=== PATIENT | female | born 1950 | race Caucasian/White ===

== ENCOUNTER 2019-04-06 06:40 | Inpatient (IN) | payer MEDICARE, OTHER ==
[2019-03-29 16:05] LABS: BASOPHILS # (AUTO) 0.1 X10'3 (0-0.2); BASOPHILS % (AUTO) 0.9 % (0-1); EOSINOPHILS # (AUTO) 0.2 X10'3 (0-0.9); EOSINOPHILS % (AUTO) 1.9 % (0-6); LYMPHOCYTES # (AUTO) 2.5 X10'3 (1.1-4.8); LYMPHOCYTES % (AUTO) 23.8 % (21-51); MEAN CORPUSCULAR HEMOGLOBIN 29.1 PG (27.0-31.0); MEAN CORPUSCULAR HGB CONC 33.5 g/dL (33.0-36.5); MEAN CORPUSCULAR VOLUME 87.1 FL (78-98); MEAN PLATELET VOLUME 7.9 FL (7.4-10.4); MONOCYTES # (AUTO) 0.6 X10'3 (0-0.9); MONOCYTES % (AUTO) 5.6 % (2-12); NEUTROPHILS # (AUTO) 7.1 X10'3 (1.8-7.7); NEUTROPHILS % (AUTO) 67.8 % (42-75); PRE OP PLATELET COUNT 376 X10'3 (140-440); RED BLOOD COUNT 5.16 X10'6 (4.20-5.60); RED CELL DISTRIBUTION WIDTH 14.4 % (11.5-14.5)
[2019-03-29 16:12] LABS: ALKALINE PHOSPHATASE 172 IU/L (46-116); BLOOD UREA NITROGEN 12 MG/DL (7-18); CALCIUM 9.4 MG/DL (8.5-10.1); CHLORIDE 104 MMOL/L (99-107); CREATININE 0.86 MG/DL (0.40-0.90); PRE OP ALT 48 U/L (30-65); PRE OP ANION GAP 9 (8-16); PRE OP AST 23 U/L (10-37); PRE OP BILIRUB, TOTAL 0.5 MG/DL (0.0-1.0); PRE OP GLUCOSE 97 MG/DL (70-104); PRE OP POTASSIUM 3.7 MMOL/L (3.4-5.1); PRE OP SODIUM 140 MMOL/L (135-145); TOTAL CARBON DIOXIDE 27.1 MMOL/L (24-32); TOTAL PROTEIN 7.9 G/DL (6.4-8.2); eGFR 65 ML/MIN
[~2019-04-06] VITALS: Ht 157.5 cm; Wt 72.6 kg
[2019-04-06] VITALS (16 sets, daily range): BP systolic 104–149; BP diastolic 43–82
[~2019-04-06 06:40] MED LIST: ATOR40TA PO; BUPR150T6 PO; FLUT16SP2 BOTHNARES; GABA600T13 PO; HYDR-3686 PO; famotidine 20mg tablet PO ONE; ringers solution, lacted 1,000 ML IV SCH; vancomycin inj 1,500 MG in normal saline 300ml IV soln IV ONE
[2019-04-06] MEDS ORDERED: LIDOcaine 1% (10mg/ml) 2ml vial ONE (07:33)
[2019-04-06] MEDS ORDERED: clindamycin 600mg/D5W 50ml 50 ML IV ONE (07:40)
[2019-04-06] MEDS ORDERED: ketorolac trometh. 30mg/ml inj. ONE (09:09)
[2019-04-06] MEDS ORDERED: ROPIVAcaine 0.5% (5mg/ml) 30ml vial ONE ×2 (09:09→09:16)
[2019-04-06] MEDS ORDERED: MIDAZolam 5mg/5ml vial ONE (09:13)
[2019-04-06] MEDS ORDERED: fentaNYL/PF 50MCG/1 ML 2ML syringe ONE ×2 (09:13→11:28)
[2019-04-06] MEDS ORDERED: LIDOcaine 1%/PF 5ML 10 MG/ML VIAL ONE (09:16)
[2019-04-06] MEDS ORDERED: rocuronium 10mg/ml inj IV ONE (09:16)
[2019-04-06] MEDS ORDERED: propofol inj 20 ML IV ONE (09:16)
[2019-04-06] MEDS ORDERED: sevoflurane 250ml liquid IH ONE (09:41)
[2019-04-06] MEDS ORDERED: tranexamic acid inj. 700 MG in normal saline 100ml IV soln 100 ML IV ONE ×3 (10:00→16:00)
[2019-04-06] MEDS ORDERED: clindamycin phosphate 150mg/ml inj. ONE (10:36)
[2019-04-06] MEDS ORDERED: ringers solution, lacted 1,000 ML IV SCH (11:22)
[2019-04-06] MEDS ORDERED: ondansetron/PF 4mg/2ml inj IV PRN ×2 (11:25→12:15)
[2019-04-06] MEDS ORDERED: HYDROmorphone inj. 0.5 MG/0.5 ML DISP.SYRIN IV PRN ×3 (11:25→12:15)
--- NOTE | 2019-04-06 11:53 | NUR ---
Received from OR via ORTHO BED, accompanied by Anesthesiologist CAILIN and report given by Anesthesiolgist. PATIENT WITH 18G PIV IN RIGHT UE RUNNING LR AT 100. VSS. SLING TO LEFT UE WITH ANTERIOR SHOULD DRESSING PRESENT THAT IS CDI. SCDS DONNED. ICE TO SHOULDER WRAP AND + RADIAL PULSE PRESENT. Addendum: 04/06/19 at 1217 by Abebe Vann RN, RN Amended: Links added.
[2019-04-06] MEDS ORDERED: diphenhydrAMINE 25mg capsule PO PRN (12:15)
[2019-04-06] MEDS ORDERED: acetaminophen 325mg tablet PO PRN (12:15)
[2019-04-06] MEDS ORDERED: bisacodyl 10mg suppository rectal RC PRN (12:15)
[2019-04-06] MEDS ORDERED: HYDROmorphone 1 mg/ml syringe IV PRN (12:15)
[2019-04-06] MEDS ORDERED: magnesium hydroxide 30ml (MOM) UD suspension PO PRN (12:15)
[2019-04-06] MEDS: ROPIVAcaine 0.2%/PF PAIN PUMP 550 ML IJ SCH (12:23)
--- NOTE | 2019-04-06 12:43 | NUR ---
ALL CRITERIA FOR TRANSFER TO THE FLOOR HAS BEEN ACHIEVED. VSS. BED LOW, CALL LIGHT AND VS. SET IN PLACE. OLIVA CARDOSO PRESENT TO ACCEPT CARE. PATIENT RESTING COMFORTABLY IN BED. BELONGINGS SENT WITH PATIENT. DRESSINGS CDI. VSS. TWO BAGS OF BELONGINGS PLACED ON BEDSIDE TABLE TO 4024A. WELL A PAIR OF GLASSES IN A PURPLE LABELED CARRIER. Addendum: 04/06/19 at 1252 by Abebe Pastor - OLIVA BAPTISTE Amended: Links added.
--- NOTE | 2019-04-06 12:43 | NUR ---
Pt. to room 4024A from recovery room accompanied by Abebe BAPTISTE. Pt. resting comfortably. Vital signs obtained and noted to be stable. Warm blankets provided. Call light provided to pt. Pt. denies pain at this time.
[2019-04-06] MEDS ORDERED: glycopyrrolate 0.2mg/ml inj ONE (12:56)
[2019-04-06] MEDS ORDERED: ondansetron/PF 4mg/2ml inj ONE (12:56)
[2019-04-06] MEDS ORDERED: neostigmine methylsulfate 1 MG/ML 10ml vial ONE (12:56)
[2019-04-06] MEDS ORDERED: dexamethasone sod phosphate 4mg/ml inj. ONE (12:56)
[2019-04-06] MEDS ORDERED: ePHEDrine 50MG/ML INJ. ONE (12:56)
[2019-04-06] MEDS: clindamycin 600mg/D5W 50ml 50 ML IV SCH ×2 (14:18→19:46)
[2019-04-06] MEDS: acetaminophen 325mg tablet PO SCH ×2 (14:18→20:58)
[2019-04-06] MEDS: potassium cl 20mEq in 1/2 NS 1,000 ML IV SCH (16:07)
--- NOTE | 2019-04-06 18:30 | NUR ---
Patient in room ORTHO 4024. I have received report from OLIVA MONTANEZ and had the opportunity to ask questions and assume patient care.
[2019-04-06] MEDS ORDERED: vancomycin/NS 1 GM ADD-VANTAGE 250 ML IV SCH (20:00)
[2019-04-06] MEDS: sennosides 8.6mg tablet PO SCH (20:58)
[2019-04-06] MEDS: buPROPion SR 150mg tablet PO SCH (20:59)
[2019-04-06] MEDS: hydrOXYzine 25 MG tablet PO SCH (21:00)
[2019-04-07] MEDS: gabapentin 300mg capsule PO SCH ×3 (00:52→15:26)
[2019-04-07] MEDS: diphenhydrAMINE 25mg capsule PO PRN (00:52)
[2019-04-07] MEDS: potassium cl 20mEq in 1/2 NS 1,000 ML IV SCH ×4 (00:53→20:11)
[2019-04-07] MEDS: acetaminophen 325mg tablet PO SCH ×4 (01:00→21:13)
[2019-04-07 02:00] VITALS: BP 119/45
[2019-04-07] MEDS: oxyCODONE IR 5mg (immed. release) tablet PO PRN ×4 (05:13→21:12)
[2019-04-07 06:19] LABS: BASOPHILS % (AUTO) 0.1 % (0-1); EOSINOPHILS % (AUTO) 0 % (0-6); HEMATOCRIT 28.9 % (35.0-45.0); HEMOGLOBIN 9.7 g/dl (12.0-16.0); LYMPHOCYTES # (AUTO) 1.2 X10'3 (1.1-4.8); LYMPHOCYTES % (AUTO) 11.1 % (21-51); MEAN CORPUSCULAR HEMOGLOBIN 29.3 PG (27.0-31.0); MEAN CORPUSCULAR HGB CONC 33.5 g/dL (33.0-36.5); MEAN CORPUSCULAR VOLUME 87.5 FL (78-98); MEAN PLATELET VOLUME 7.8 FL (7.4-10.4); MONOCYTES % (AUTO) 9.2 % (2-12); NEUTROPHILS # (AUTO) 8.5 X10'3 (1.8-7.7); NEUTROPHILS % (AUTO) 79.6 % (42-75); PLATELET COUNT 243 X10'3 (140-440); RED CELL DISTRIBUTION WIDTH 14.8 % (11.5-14.5); WHITE BLOOD COUNT 10.7 X10'3 (4.5-11.0)
[2019-04-07] MEDS: buPROPion SR 150mg tablet PO SCH ×2 (07:39→21:12)
[2019-04-07 08:00] VITALS: BP 105/44
[2019-04-07] MEDS: fluticasone nasal spray 16GM bottle NS SCH (08:00)
[2019-04-07 10:04] LABS: ANION GAP 12 (8-16); CHLORIDE 111 MMOL/L (99-107); POTASSIUM 3.9 MMOL/L (3.5-5.1); SODIUM 143 MMOL/L (135-145)
[2019-04-07] MEDS: aspirin 325mg tablet PO SCH (13:12)
[2019-04-07 14:58] VITALS: BP 100/51
--- NOTE | 2019-04-07 15:52 | NUR ---
Joint replacement consult: Pt seen by RD for written/verbal high protein ed. RD reviewed high protein needs for wound healing, immune strength, high protein foods, and protein supplementation options. RD contact information provided in case of further questions. Pt agrees to cottage cheese w/ fruit BIDLD; dietary notified. Will continue to monitor for additional protein needs post-op. Addendum: 04/07/19 at [address] Amended: Links added.
[2019-04-07 18:00] VITALS: BP 114/55
[2019-04-07] MEDS: hydrOXYzine 25 MG tablet PO SCH (21:13)
[2019-04-07] MEDS: sennosides 8.6mg tablet PO SCH (21:13)
[2019-04-07] MEDS: celeCOXIB 100mg capsule PO SCH (21:14)
[2019-04-07 22:00] VITALS: BP 108/41
[2019-04-08] MEDS: diphenhydrAMINE 25mg capsule PO PRN (00:29)
[2019-04-08] MEDS: gabapentin 300mg capsule PO SCH ×3 (00:29→15:43)
[2019-04-08] MEDS: acetaminophen 325mg tablet PO SCH ×2 (02:00→08:41)
[2019-04-08] MEDS: potassium cl 20mEq in 1/2 NS 1,000 ML IV SCH (04:11)
[2019-04-08] MEDS: oxyCODONE IR 5mg (immed. release) tablet PO PRN ×2 (05:38→13:05)
[2019-04-08 06:00] VITALS: BP 109/53
[2019-04-08 06:03] LABS: BASOPHILS # (AUTO) 0.1 X10'3 (0-0.2); BASOPHILS % (AUTO) 0.8 % (0-1); EOSINOPHILS # (AUTO) 0.2 X10'3 (0-0.9); EOSINOPHILS % (AUTO) 1.8 % (0-6); HEMATOCRIT 33.7 % (35.0-45.0); LYMPHOCYTES # (AUTO) 2.9 X10'3 (1.1-4.8); LYMPHOCYTES % (AUTO) 28.3 % (21-51); MEAN CORPUSCULAR HEMOGLOBIN 28.9 PG (27.0-31.0); MEAN CORPUSCULAR HGB CONC 32.6 g/dL (33.0-36.5); MEAN CORPUSCULAR VOLUME 88.5 FL (78-98); MONOCYTES % (AUTO) 10.1 % (2-12); NEUTROPHILS # (AUTO) 6.1 X10'3 (1.8-7.7); PLATELET COUNT 277 X10'3 (140-440); RED BLOOD COUNT 3.81 X10'6 (4.20-5.60); RED CELL DISTRIBUTION WIDTH 15.2 % (11.5-14.5); WHITE BLOOD COUNT 10.3 X10'3 (4.5-11.0)
--- NOTE | 2019-04-08 06:20 | NUR ---
Patient in room ORTHO 4024. I have received report fromARISTEO BAPTISTE and had the opportunity to ask questions and assume patient care.
--- NOTE | 2019-04-08 06:20 | NUR ---
Patient in room ORTHO 4024. I have received report from OLIVA Trejo and had the opportunity to ask questions and assume patient care.
--- NOTE | 2019-04-08 06:28 | NUR ---
Problems reprioritized. Patient report given, questions answered & plan of care reviewed with Olesya BAPTISTE and Yajaira Coleman RN.
[2019-04-08] MEDS: fluticasone nasal spray 16GM bottle NS SCH (08:00)
[2019-04-08] MEDS: celeCOXIB 100mg capsule PO SCH ×2 (08:40→20:15)
[2019-04-08] MEDS: aspirin 325mg tablet PO SCH (08:41)
[2019-04-08] MEDS: buPROPion SR 150mg tablet PO SCH ×2 (08:41→20:15)
[2019-04-08 10:00] VITALS: BP 118/61
[2019-04-08] MEDS: ROPIVAcaine 0.2%/PF PAIN PUMP 550 ML IJ SCH (11:22)
--- NOTE | 2019-04-08 17:58 | NUR ---
Student documentation: I have reviewed and agree with all interventions, assessments performed and documented by FAUSTINO BAPTISTE.
[2019-04-08 18:00] VITALS: BP 109/44
--- NOTE | 2019-04-08 18:25 | NUR ---
Problems reprioritized. Patient report given, questions answered & plan of care reviewed with Chelsea Phillips RN.
[2019-04-08] MEDS: sennosides 8.6mg tablet PO SCH (20:15)
[2019-04-08] MEDS: hydrOXYzine 25 MG tablet PO SCH (20:15)
[2019-04-08 22:00] VITALS: BP 109/42
[2019-04-09] MEDS: gabapentin 300mg capsule PO SCH ×2 (00:10→07:22)
[2019-04-09 06:00] VITALS: BP 148/77
--- NOTE | 2019-04-09 06:26 | NUR ---
Problems reprioritized. Patient report given, questions answered & plan of care reviewed with Krys Thomas.
[2019-04-09 06:34] LABS: BASOPHILS # (AUTO) 0.1 X10'3 (0-0.2); BASOPHILS % (AUTO) 0.9 % (0-1); EOSINOPHILS # (AUTO) 0.4 X10'3 (0-0.9); HEMATOCRIT 35.4 % (35.0-45.0); HEMOGLOBIN 11.7 g/dl (12.0-16.0); LYMPHOCYTES # (AUTO) 2.5 X10'3 (1.1-4.8); LYMPHOCYTES % (AUTO) 27.3 % (21-51); MEAN CORPUSCULAR HEMOGLOBIN 29.1 PG (27.0-31.0); MEAN CORPUSCULAR HGB CONC 33.1 g/dL (33.0-36.5); MEAN CORPUSCULAR VOLUME 87.7 FL (78-98); MEAN PLATELET VOLUME 8.2 FL (7.4-10.4); MONOCYTES # (AUTO) 0.9 X10'3 (0-0.9); MONOCYTES % (AUTO) 9.4 % (2-12); NEUTROPHILS # (AUTO) 5.3 X10'3 (1.8-7.7); NEUTROPHILS % (AUTO) 58.4 % (42-75); PLATELET COUNT 284 X10'3 (140-440); RED BLOOD COUNT 4.03 X10'6 (4.20-5.60); RED CELL DISTRIBUTION WIDTH 15.1 % (11.5-14.5); WHITE BLOOD COUNT 9.1 X10'3 (4.5-11.0)
--- NOTE | 2019-04-09 06:36 | NUR ---
Patient in room ORTHO 4024. I have received report from Chelsea BAPTISTE and had the opportunity to ask questions and assume patient care.
[2019-04-09] MEDS: celeCOXIB 100mg capsule PO SCH (07:22)
[2019-04-09] MEDS: aspirin 325mg tablet PO SCH (07:22)
[2019-04-09] MEDS: buPROPion SR 150mg tablet PO SCH (07:23)
[2019-04-09] MEDS: oxyCODONE IR 5mg (immed. release) tablet PO PRN ×2 (07:29→12:04)
[2019-04-09] MEDS: fluticasone nasal spray 16GM bottle NS SCH (08:00)
[2019-04-09 10:14] VITALS: BP 104/42
== END 2019-04-09 12:40 | DRG 483 ==
LOC: PAS IN 06:40 → EDSTATUS 10:30 → ORTHO 4S 12:55
PROVIDERS: ADMIT Orthopaedic Surgery; ATTEND Orthopaedic Surgery
PROC: 0LS40ZZ Reposition Left Upper Arm Tendon, Open Approach (ICD-10-PCS; 2019-04-06)
PROC: 3E0T3BZ Introduction of Anesthetic Agent into Peripheral Nerves and Plexi, Percutaneous Approach (ICD-10-PCS; 2019-04-06)
PROC: 0RRK00Z Replacement of Left Shoulder Joint with Reverse Ball and Socket Synthetic Substitute, Open Approach (ICD-10-PCS; principal; 2019-04-06 09:41)
DX: M19.012 Primary osteoarthritis, left shoulder (principal); D62 Acute posthemorrhagic anemia; M75.122 Complete rotator cuff tear or rupture of left shoulder, not specified as traumatic; E78.5 Hyperlipidemia, unspecified; F17.210 Nicotine dependence, cigarettes, uncomplicated; M65.812 Other synovitis and tenosynovitis, left shoulder; J30.2 Other seasonal allergic rhinitis; F32.9 Major depressive disorder, single episode, unspecified; M75.22 Bicipital tendinitis, left shoulder; M79.7 Fibromyalgia; Z89.511 Acquired absence of right leg below knee; Z88.1 Allergy status to other antibiotic agents; Z88.0 Allergy status to penicillin; Z88.2 Allergy status to sulfonamides; Z88.8 Allergy status to other drugs, medicaments and biological substances; Z80.9 Family history of malignant neoplasm, unspecified; Z82.49 Family history of ischemic heart disease and other diseases of the circulatory system; Z79.899 Other long term (current) drug therapy
CPT/HCPCS: 36415; 80051; 80053; 82948; 85025; 87081; 97110; 97116; 97161; 97530; A4565; A4618; A7000; C1776; G0378; J1100; J1885; J2001; J2250; J2405; J2704; J2710; J2795; J3010; J3370; J3480; J3490; J7120; Q0163; Z7610